=== PATIENT | female | born 1990 | race Caucasian/White ===

== ENCOUNTER 2017-08-05 22:53 | Emergency (ER) | payer BC ==
[2017-08-05 23:16] VITALS: BP 111/67; PULSE 65; RESP 18; TEMP 98.5
[2017-08-05] MEDS ORDERED: diphenhydrAMINE 25 MG CAP PO STA (23:34)
[2017-08-05] MEDS ORDERED: ACETAMINOPHEN TAB 325 MG TAB PO STA (23:34)
--- NOTE | 2017-08-05 23:39 | ED ---
URI HPI - General Chief Complaint: Upper Respiratory Infection Stated Complaint: Flu? Time Seen by Provider: 08/05/17 23:17 Source: patient, RN notes reviewed Mode of arrival: ambulatory Limitations: no limitations - History of Present Illness Initial Comments: This is a 26-year-old female who presents to the emergency department with chief complaint of possible flu. Patient states that earlier this morning she developed body aches. She states that she then developed nausea and vomiting. She also reports sinus congestion, runny nose and cough productive of yellow sputum. She denies any fevers or chills, abdominal pain, diarrhea or constipation. She denies difficulty breathing. She states that she has had a positive at-home test and does have an appointment scheduled for confirmation with her [facility] on Monday. Patient states that she has been keeping fluids down but has difficulty eating solid foods. - Related Data Allergies Allergy/AdvReac Type Severity Reaction Status Date / Time No Known Allergies Allergy Verified 08/05/17 23:16 Review of Systems ROS Statement: Those systems with pertinent positive or pertinent negative responses have been documented in the HPI. ROS Other: All systems not noted in ROS Statement are negative. Past Medical History Past Medical History: No Reported History History of Any Multi-Drug Resistant Organisms: None Reported Past Surgical History: No Surgical Hx Reported Past Psychological History: No Psychological Hx Reported Smoking Status: Former smoker Past Alcohol Use History: None Reported Past Drug Use History: None Reported General Exam - General Exam Comments Initial Comments: General: Awake and alert, well-developed; in no apparent distress. Sounds congested while speaking. HEENT: Head atraumatic, normocephalic. Pupils are equal, round and reactive to light. Extraocular movements intact. Oropharynx moist without erythema or exudate. Bilateral TMs are pearly without effusion. Neck: Supple. Normal ROM. Cardiovascular: Regular rate and rhythm. No murmurs, rubs or gallops. Chest symmetrical. Respiratory: Lungs clear to auscultation bilaterally. No wheezes, rales or rhonchi. Normal respiratory effort with no use of accessory muscles. Abdomen: Soft, non-tender, non-distended. No rigidity, rebound or guarding. Normal bowel sounds in all 4 quadrants. Musculoskeletal: Normal ROM, no tenderness bilateral upper and lower extremities. Ambulating normally. Skin: [place], warm and dry without rashes or lesions. Neurological: Alert and oriented x3. CN II-XII grossly intact. Speech is fluent and answers are appropriate. No focal neuro deficits. Psychiatric: Normal mood and affect. No overt signs of depression or anxiety noted. Limitations: no limitations Course Vital Signs 08/05/17 23:12 Temperature 98.5 F Pulse Rate 65 Respiratory 18 Rate Blood Pressure 111/67 O2 Sat by Pulse 97 Oximetry Medical Decision Making - Medical Decision Making This is a 26-year-old female who presents to the emergency department with chief complaint of possible flu. Patient reports nausea and vomiting, body aches, headache, sinus congestion and runny nose, cough for one day. Denies fevers or chills, abdominal pain, diarrhea. Patient does state that she has had an at home positive test. On physical examination, patient does sound congested while speaking. Lungs are clear to auscultation bilaterally. Abdomen is soft and non-tender. Influenza was negative. Urine hCG is positive. Patient likely suffering from a viral upper respiratory infection. Educated patient that the only safe drugs to take for her symptoms during are Tylenol and Benadryl. Vital signs the been stable and patient is in no acute distress. She will be discharged home at this time. She is in agreement and voices understanding. All questions answered. - Lab Data Lab Results 08/05/17 08/05/17 Range/Units 23:13 23:13 Urine HCG, Qual Detected (Not Detectd) Influenza Type A RNA Not Detected (Not Detectd) Influenza Type B (PCR) Not Detected (Not Detectd) Disposition Clinical Impression: Upper respiratory infection, Disposition: HOME SELF-CARE Condition: Good Instructions: Upper Respiratory Infection (ED) Additional Instructions: Please follow up with primary care provider within 1-2 days. Return to emergency department if symptoms should worsen or any concerns arise. Is patient prescribed a controlled substance at d/c from ED?: No Referrals: Janis Sawyer DO [Primary Care Provider] - 1-2 days Time of Disposition: 00:35
== END 2017-08-06 00:46 | disposition home or self-care (01) ==
LOC: EC 22:53
DX: O99.519 Diseases of the respiratory system complicating pregnancy, unspecified trimester (principal); J06.9 Acute upper respiratory infection, unspecified; O21.9 Vomiting of pregnancy, unspecified; Z32.01 Encounter for pregnancy test, result positive; Z87.891 Personal history of nicotine dependence; Z3A.00 Weeks of gestation of pregnancy not specified
CPT/HCPCS: 81025; 87502; 99283